=== PATIENT | male | born 1960 | race Caucasian/White ===

== ENCOUNTER 2016-10-12 16:45 | Emergency (ER) | payer OTHER ==
[2016-10-12] MEDS ORDERED: KETOROLAC 30 MG/ML VIAL ONE (18:26)
[2016-10-12] MEDS ORDERED: DILAUDID 1 MG/ML AMP ONE (18:27)
[2016-10-12] MEDS ORDERED: SODIUM CHLORIDE 0.9% 1,000 ML ONE (18:27)
[2016-10-12] MEDS ORDERED: MORPHINE 4 MG/ML SYR ONE (20:30)
== END 2016-10-12 20:50 | disposition home or self-care (01) ==
LOC: ER 16:45
CPT/HCPCS: 36415 ×2; 74176 ×2; 80053 ×2; 81001 ×2; 83690 ×2; 85025 ×2; 96361 ×2; 96374 ×2; 96375 ×2; 99284; J1170; J1885; J2270